=== PATIENT | male | born 1950 | race Two or more races ===

== ENCOUNTER 2020-04-13 17:16 | Emergency (ER) | payer OTHER ==
[~2020-04-13] VITALS: Ht 167.6 cm; Wt 77.1 kg
[2020-04-13 20:52] VITALS: BP 160/90
[2020-04-13] MEDS ORDERED: TETANUS-DIPTH-ACEL PERTUSSIS 0.5ML SYR Tdap IM ONE (23:00)
[2020-04-13] MEDS ORDERED: LIDOCAINE W/ EPINEPHRINE 1% 20ML VIAL ONE (23:09)
[2020-04-13] MEDS ORDERED: BACITRACIN INJ 50000 UNIT VIAL TOP ONE (23:30)
[2020-04-13] MEDS ORDERED: cefTRIAXone W LIDOCAINE 1 GM IM IM ONE (23:30)
[2020-04-13] MEDS ORDERED: cefTRIAXone SOD 1,000 MG VL ONE (23:31)
[2020-04-13] MEDS ORDERED: LIDOCAINE 1% HCL (LOCAL ANESTH.) INJ 20ML MDV ONE (23:33)
== END 2020-04-13 23:57 | disposition home or self-care (01) ==
LOC: ER 17:16 → EDBD 17:16 → ER 23:57
DX: S01.01XA Laceration without foreign body of scalp, initial encounter (principal); S52.023A Displaced fracture of olecranon process without intraarticular extension of unspecified ulna, initial encounter for closed fracture; S09.90XA Unspecified injury of head, initial encounter; X58.XXXA Exposure to other specified factors, initial encounter; Y93.89 Activity, other specified; Y92.89 Other specified places as the place of occurrence of the external cause; Y99.8 Other external cause status
CPT/HCPCS: 12002; 70450; 72125; 73070; 90471; 90715; 96372; 99285; J0696; J2001